=== PATIENT | male | born 1935 | race African-American/Black ===

== ENCOUNTER 2019-03-02 15:02 | Emergency (ER) | payer MEDICARE, OTHER ==
[~2019-03-02] VITALS: Ht 170.2 cm; Wt 68.0 kg
[2019-03-02 16:17] LABS: Basophils # (auto) 0 uL; Basophils % (auto) 0.5 % (0.0-2.0); Eosinophils # (auto) 0.2 uL; Eosinophils % (auto) 2.9 % (0.0-7.0); Hematocrit 36.5 % (41.0-53.0); Hemoglobin 12.2 g/dL (13.5-17.5); Lymphocytes # (auto) 1.4 uL; Lymphocytes % (auto) 26.8 % (10.0-50.0); Mean Corpuscular Hemoglobin 26.5 pg (28.0-32.0); Mean Corpuscular Hgb Conc. 33.4 g/dL (32.0-36.0); Mean Corpuscular Volume 79.4 fL (80.0-100.0); Monocytes # (auto) 0.7 uL; Neutrophils # (auto) 2.9 uL; Neutrophils % (auto) 55.8 % (37.0-80.0); Nucleated Red Blood Cells % 0.1 %; Platelet Count (auto) 129 10^3/uL (140-450); Red Cell Distribution Width 16.6 % (11.8-14.3); White Blood Cell 5.2 10^3/uL (4.4-10.8)
[2019-03-02 16:31] LABS: Albumin 3.6 g/dL (3.4-5.0); Anion Gap 9 (5-15); Blood Urea Nitrogen 23 mg/dL (7-18); Carbon Dioxide 27 mmol/L (21-32); Chloride 107 mmol/L (98-107); Glucose 91 mg/dL (74-106); Magnesium 2.4 mg/dL (1.6-2.6); Potassium 3.9 mmol/L (3.5-5.1); Sodium 143 mmol/L (136-145)
[2019-03-02 16:37] VITALS: BP 111/65
[2019-03-02 16:37] LABS: Alanine Aminotransferase 27 U/L (16-61); Alkaline Phosphatase 66 U/L (45-117); Aspartate Aminotransferase 18 U/L (15-37); BUN/Creatinine Ratio 13.8; Bilirubin, Total 0.2 mg/dL (0.2-1.0); GFR African American 51 mL/min; GFR Non-African American 42 mL/min
[2019-03-02 18:09] LABS: Urine Bacteria FEW /hpf (None Seen); Urine Blood Negative /uL (Negative); Urine Hyaline Cast MOD /lpf (0 - 2); Urine Mucus FEW (None Seen); Urine Specific Gravity 1.008 (1.001-1.035); Urine WBC 25 /hpf (0 - 3)
[2019-03-02] MEDS ORDERED: cefTRIAXone 1GM/50ML D5W 50 ML IV ONE (18:30)
== END 2019-03-02 18:43 | disposition home or self-care (01) ==
LOC: ER 15:14
DX: G30.9 Alzheimer's disease, unspecified (principal); F02.80 Dementia in other diseases classified elsewhere, unspecified severity, without behavioral disturbance, psychotic disturbance, mood disturbance, and anxiety; J18.9 Pneumonia, unspecified organism; N39.0 Urinary tract infection, site not specified; D69.6 Thrombocytopenia, unspecified; I12.9 Hypertensive chronic kidney disease with stage 1 through stage 4 chronic kidney disease, or unspecified chronic kidney disease; N18.9 Chronic kidney disease, unspecified; D63.1 Anemia in chronic kidney disease; E78.5 Hyperlipidemia, unspecified
CPT/HCPCS: 36415; 71045; 80053; 81001; 83735; 84484; 85025; 93005; 96374; 99284; J0696; 96365

== ENCOUNTER 2024-10-23 19:30 | Emergency (ER) | payer OTHER, MEDICARE ==
[~2024-10-23] VITALS: Ht 170.2 cm; Wt 57.0 kg
[2024-10-23 19:48] VITALS: BP 176/122; RESP 16; O2SAT 100
[2024-10-23] MEDS: cloNIDine HCL 0.1 MG TAB PO ONE (19:54)
--- NOTE | 2024-10-23 20:08 | ED.PDOC ---
History of Present Illness HPI Comments 89 y/o M, with a Hx of HTN, HLD, glaucoma, and dementia, presents with spouse for c/o HTN, today. Both spouse and patient are poor historians, with spouse endorsing on bringing the patient after noticing his blood pressure being elevated at home, earlier, in addition to suspecting him on c/o a headache after noticing "scratching" his head all day as well. She endorses of at-home blood pressure device measuring the patient having a systolic pressure of 240 amidst history of compliancy with his HTN medications. She comments on giving the patient his Amlodipine and Lisinopril medications along with Tylenol. Spouse also endorses on patient being seen and discharged from [facility] Department after calling EMS for reasons she is unable to recollect at time of assessment. Patient, upon evaluation, reports no symptoms, currently. Chief Complaint: High Blood Pressure Time Seen by MD: 19:45 Primary Care Provider: UNK Reviewed Notes: Nurses Notes, Medications, Allergies Allergies: Coded Allergies: NO KNOWN ALLERGIES (Unverified , 03/02/19) Information Source: Patient, Spouse Mode of Arrival: Ambulatory Severity: Moderate Timing: Hours Duration: Since onset Prehospital treatment: Other (see HPI) Past Medical History PAST MEDICAL HISTORY: Dementia, High Lipids, HTN Past Medical History (Other): Glaucoma Surgical History: Hernia Repair Family History Family History: Unobtainable Social History Smoker: Non-Smoker Alcohol: Denies ETOH Use Drugs: Denies Drug Use Lives In: Home Constitutional: denies: chills, diaphoresis, fatigue, fever, malaise, sweats, weakness, others EENTM: denies: blurred vision, double vision, ear bleeding, ear discharge, ear drainage, ear pain, ear ringing, eye pain, eye redness, hearing loss, mouth pain, mouth swelling, nasal discharge, nose bleeding, nose congestion, nose p ain, photophobia, tearing, throat pain, throat swelling, voice changes, others Respiratory: denies: cough, hemoptysis, orthopnea, SOB at rest, shortness of breath, SOB with excertion, stridor, wheezing, others Cardiovascular: denies: chest pain, dizzy spells, diaphoresis, Dyspnea on exertion, edema, irregular heart beat, left arm pain, lightheadedness, palpitations, PND, syncope, others Gastrointestinal: denies: abdomen distended, abdominal pain, blood streaked bowels, constipated, diarrhea, dysphagia, difficulty swallowing, hematemesis, melena, nausea, poor appetite, poor fluid intake, rectal bleeding, rectal pain, vomiting, others Genitourinary: denies: burning, dysuria, flank pain, frequency, hematuria, incontinence, penile discharge, penile sore, pain, testicle pain, testicle swelling, urgency, others Neurological: reports: headache; denies: dizziness, fainting, left sided num bness, left sided weakness, numbness, paresthesia, pre-existing deficit, right sided numbness, right sided weakness, seizure, speech problems, tingling, tremors, weakness, others Musculoskeletal: denies: back pain, gout, joint pain, joint swelling, muscle pain, muscle stiffness, neck pain, others Integumetry: denies: bruises, change in color, change in hair/nails, dryness, laceration, lesions, lumps, rash, wounds, others Allergic/Immunocompromised: denies: Difficulty Healing, Frequent Infections, Hives, Itching, others Hematologic/Lymphatic: reports: others (HTN); denies: anemia, blood clots, easy bleeding, easy bruising, swollen glands Endocrine: denies: excessive hunger, excessive sweating, excessive thirst, excessive urination, flushing, intolerance to cold, intolerance to heat, unexplained weight gain, unexplained weight loss, others Psychiatric: denies: anxiety, bipolar disorder, depression, hopeless, panic disorder, schizophrenia, sleepless, suicidal, others Unable to Obtain due to: Altered Mental Status (Due to progressive dementia) All Other Systems: Reviewed and Negative (negative unless otherwise stated above or in HPI) Physical Exam General Appearance: Mild Distress (Patient appears slightly disoriented which may be due to his dementia. Patient does not look to be in pain.), Normal, Other (poor historian, mild confusion, pleasant appearing, demented ) HEENT: Normal ENT Inspection, Pharynx Normal, TMs Normal Neck: Full Range of Motion, Non-Tender, Normal, Normal Inspection Respiratory: Chest Non-Tender, Lungs Clear, No Accessory Muscle Use, No Respiratory Distress, Normal Breath Sounds Cardiovascular: No Edema, No JVD, No Murmur, No Gallop, Normal Peripheral Pulses, Regular Rate/Rhythm Breast Exam: Deferred Gastrointestinal: No Organomegaly, Non Tender, No Pulsatile Mass, Normal Bowel Sounds, Soft Genitalia: Deferred Pelvic: Deferred Rectal: Deferred Extremities: No calf tenderness, Normal inspection Musculoskeletal : Apperance: Normal Neurologic: Disoriented, Normal Mood Cerebellar Function: NOT DONE Reflexes: NOT DONE Skin: Dry, Normal Color, Warm Lymphatic: No Adenopathy Was a procedure done? Was a procedure done?: No Differential Dx Considerations may include: HTN emergency, HTN essential acute coronary syndrome, pneumonia, bronchitis, sepsis, congestive heart failure X-Ray, Labs, Meds, VS Vital Signs Date Time Temp Pulse Resp B/P (MAP) Pulse Ox O2 Delivery O2 Flow Rate FiO2 10/23/24 20:51 59 10/23/24 19:55 70 10/23/24 19:54 176/122 10/23/24 19:48 98.1 76 16 176/122 (140) 100 Lab Test 10/23/24 20:55 10/23/24 20:01 Range/Units Troponin I High Sensitivity 10 10 </=54 ng/L White Blood Count 6.4 4.4-10.8 10^3/uL Red Blood Count 4.99 4.5-5.90 10^6/uL Hemoglobin 12.6 L 13.5-17.5 g/dL Hematocrit 39.1 L 41.0-53.0 % Mean Corpuscular Volume 78.4 L 80.0-100.0 fL Mean Corpuscular Hemoglobin 25.3 L 28.0-32.0 pg Mean Corpuscular Hemoglobin Concent 32.2 32.0-36.0 g/dL Red Cell Distribution Width 16.8 H 11.8-14.3 % Platelet Count 163 140-450 10^3/uL Mean Platelet Volume 8.6 6.9-10.8 fL Neutrophils (%) (Auto) 61.3 37.0-80.0 % Lymphocytes (%) (Auto) 23.2 10.0-50.0 % Monocytes (%) (Auto) 11.8 0.0-12.0 % Eosinophils (%) (Auto) 3.1 0.0-7.0 % Basophils (%) (Auto) 0.6 0.0-2.0 % Neutrophils # (Auto) 3.9 1.6-8.6 10 ^3/uL Lymphocytes # (Auto) 1.5 0.4-5.4 10 ^3/uL Monocytes # (Auto) 0.8 0-1.3 10 ^3/uL Eosinophils # (Auto) 0.2 0-0.8 10 ^3/uL Basophils # (Auto) 0 0-0.2 10 ^3/uL Nucleated Red Blood Cells 0.0 % D-Dimer, Quantitative 9.35 H 0.0-0.49 mg/L FEU Sodium Level 142 136-145 mmol/L Potassium Level 3.8 3.5-5.1 mmol/L Chloride Level 109 H 98-107 mmol/L Carbon Dioxide Level 25 20-31 mmol/L Anion Gap 8 5-15 Blood Urea Nitrogen 21 9-23 mg/dL Creatinine 1.62 H 0.700-1.30 mg/dL Glomerular Filtration Rate Calc 41 >90 mL/min BUN/Creatinine Ratio 13.0 10.0-20.0 Serum Glucose 99 74-106 mg/dL Calcium Level 10.2 8.7-10.4 mg/dL Total Bilirubin 0.3 0.2-1.0 mg/dL Aspartate Amino Transferase (AST) 17 13-40 U/L Alanine Aminotransferase (ALT) 14 7-40 U/L Alkaline Phosphatase 81 46-116 U/L B-Type Natriuretic Peptide 62.43 0-100 pg/mL Total Protein 7.5 5.7-8.2 g/dL Albumin 4.8 3.2-4.8 g/dL Current Medications Medications (Trade) Dose Ordered Sig/Antoinette Route Start Time Stop Time Status Last Admin Clonidine HCl (Catapres Tablet) 0.2 mg ONCE ONCE PO 10/23/24 20:00 10/23/24 20:01 DC 10/23/24 19:54 [place] [address] Ph: [phone] DIAGNOSTIC IMAGING Diagnostic Imaging Report : [id number] Signed PATIENT: YURI BOWERACCT: [id number] UNIT: [id number] : 1935 LOC: ER ROOM / BED: / AGE / SEX: 89 / M ADM STATUS: REG ER SERVICE 45 ORDERING PHYSICIAN: YEHUDA BRANDON PAC PROCEDURE(s): CXRP - CHEST PORTABLE REASON: Elevated blood pressure ORDER NUMBER(s): [id number], ACCESSION NUMBER(s): [id number] CHEST RADIOGRAPH Indication: Elevated blood pressure Technique: Single frontal view of the chest was obtained Comparison: None FINDINGS: Lines and Tubes: None Lungs: Mildly prominent interstitial markings are noted bilaterally with increased markings worse in the bases. Findings of pneumonia versus congestive failure both in the differential. Pleura: No effusion. No pneumothorax. Cardiomediastinal contours: Cardiac size upper limits normal. Bones: No acute osseous abnormality. IMPRESSION: 1. Pneumonia versus congestive failure both in the differential. 2. No prior studies for comparison ATED BY: AUSTYN MORRELL Jr., DO DICTATED DATE/TIME: 10/23/242050 SIGNED BY: AUSTYN MORRELL Jr., SIGNED DATE/TIME: 10/23/242050 CC: X-Ray, Labs, Meds, VS Comment All studies performed the ED were evaluated by me personally. Chest x-ray revealed what appears to be bilateral pneumonia. EKG revealed a sinus rhythm with a rate of 59, borderline right axis deviation, borderline T-wave abnormalities. OK interval of 146 and QT interval 424. Laboratories revealed an elevated D-dimer and mild anemia. Imaging attempted multiple times to locate the patient lobby for a CT angio to rule out a PE, but it appears the patient and his have eloped from the facility. Time of 1ST Reevaluation: 23:04 Reevaluation 1ST: Improved Consultation: PCP Patient Education/Counseling: Diagnosis, Treatment Family Education/Counseling: Diagnosis, Treatment, No Family Present Departure 1 Departure Time of Disposition: 23:05 Impression: Primary Impression: Elevated blood pressure reading Additional Impressions: Pneumonia Elevated d-dimer Disposition: LEFT AWOL/ELOPED Condition: Fair Discharged With: Self, Spouse Critical Care Note Critical Care Time?: No Stability Stability form required: No Heart Score Heart Score: Heart Score Response (Comments) Value History Slightly Suspicious 0 EKG Normal 0 Age >65 2 Risk Factors 1 or 2 risk factors 1 Troponin Normal limit 0 Total 3 I personally scribed for YEHUDA BRANDON PAC ([email or web address]) on 10/23/24 at 20:07. Electronically submitted by Logan Rivas ([email or web address]). I personally scribed for YEHUDA BRANDON PAC ([email or web address]) on 10/23/24 at 21:15. Electronically submitted by Logan Rivas ([email or web address]). YEHUDA BRANDON PAC Oct 23, 2024 20:07
[2024-10-23 20:24] LABS: Basophils # (auto) 0 10 ^3/uL (0-0.2); Basophils % (auto) 0.6 % (0.0-2.0); Eosinophils # (auto) 0.2 10 ^3/uL (0-0.8); Eosinophils % (auto) 3.1 % (0.0-7.0); Hematocrit 39.1 % (41.0-53.0); Hemoglobin 12.6 g/dL (13.5-17.5); Lymphocytes # (auto) 1.5 10 ^3/uL (0.4-5.4); Lymphocytes % (auto) 23.2 % (10.0-50.0); Mean Corpuscular Hemoglobin 25.3 pg (28.0-32.0); Mean Corpuscular Hgb Conc. 32.2 g/dL (32.0-36.0); Mean Corpuscular Volume 78.4 fL (80.0-100.0); Monocytes # (auto) 0.8 10 ^3/uL (0-1.3); Monocytes % (auto) 11.8 % (0.0-12.0); Neutrophils # (auto) 3.9 10 ^3/uL (1.6-8.6); Neutrophils % (auto) 61.3 % (37.0-80.0); Platelet Count (auto) 163 10^3/uL (140-450); Red Blood Cells 4.99 10^6/uL (4.5-5.90); Red Cell Distribution Width 16.8 % (11.8-14.3); White Blood Cell 6.4 10^3/uL (4.4-10.8)
[2024-10-23 20:51] VITALS: PULSE 59
[2024-10-23 20:52] LABS: Alanine Aminotransferase 14 U/L (7-40); Alkaline Phosphatase 81 U/L (46-116); Anion Gap 8 (5-15); Aspartate Aminotransferase 17 U/L (13-40); Blood Urea Nitrogen 21 mg/dL (9-23); Calcium 10.2 mg/dL (8.7-10.4); Carbon Dioxide 25 mmol/L (20-31); Glucose 99 mg/dL (74-106); Potassium 3.8 mmol/L (3.5-5.1); Sodium 142 mmol/L (136-145)
[2024-10-23 20:53] LABS: Bilirubin, Total 0.3 mg/dL (0.2-1.0); Total Protein 7.5 g/dL (5.7-8.2)
--- NOTE | 2024-10-23 20:54 | DVH ---
CHEST RADIOGRAPH Indication: Elevated blood pressure Technique: Single frontal view of the chest was obtained Comparison: None FINDINGS: Lines and Tubes: None Lungs: Mildly prominent interstitial markings are noted bilaterally with increased markings worse in the bases. Findings of pneumonia versus congestive failure both in the differential. Pleura: No effusion. No pneumothorax. Cardiomediastinal contours: Cardiac size upper limits normal. Bones: No acute osseous abnormality. IMPRESSION: 1. Pneumonia versus congestive failure both in the differential. 2. No prior studies for comparison
[2024-10-23 21:05] LABS: Albumin 4.8 g/dL (3.2-4.8); Chloride 109 mmol/L (98-107)
--- NOTE | 2024-10-24 03:49 | ECG ---
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
--- NOTE | 2024-10-24 04:25 | ECG ---
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
== END 2024-10-23 23:53 | disposition left against medical advice (07) ==
LOC: ER 19:30
DX: J18.9 Pneumonia, unspecified organism (principal); R03.0 Elevated blood-pressure reading, without diagnosis of hypertension; R79.1 Abnormal coagulation profile; F03.90 Unspecified dementia, unspecified severity, without behavioral disturbance, psychotic disturbance, mood disturbance, and anxiety; E78.5 Hyperlipidemia, unspecified; I10 Essential (primary) hypertension; Z98.890 Other specified postprocedural states
CPT/HCPCS: 36415; 71045; 80053; 83880; 84484; 85025; 85379; 93005